=== PATIENT | male | born 1945 | race Caucasian/White ===

== ENCOUNTER 2024-05-19 19:01 | Emergency (ER) | payer MEDICARE ==
[~2024-05-19 19:01] MED LIST: Iopamidol 370 76% 100 ML VIAL ONE
[2024-05-19] MEDS ORDERED: Morphine 4 MG/ML VIAL ONE (21:39)
[2024-05-19 22:11] LABS: #Basophils 0.06 10x3/uL (0.0-0.2); #Eosinophils 0.87 10x3/uL (0.0-0.5); #Monocytes 0.61 10x3/uL (0.0-1.1); #Neutrophils 4.78 10x3/uL (1.5-8.4); %Basophils 0.8 % (0.0-2.0); %Eosinophils 11.5 % (0.0-6.0); %Lymphocytes 15.8 % (18.0-47.0); %Monocytes 8.1 % (0.0-10.0); %Neutrophils 63.3 % (40.0-75.0); Hemoglobin 14.4 g/dL (13.5-17.5); Mean Corpuscular HGB CONC 32.7 g/dL (32.0-36.0); Mean Corpuscular Hemoglobin 32.6 pg (27.0-33.0); Mean Corpuscular Volume 99.5 fL (81.2-95.1); Platelet Count 266 10x3/uL (150-450); RBC Distribution Width 13.5 % (11.5-14.5); Red Blood Cell (RBC) Count 4.42 10x6/uL (4.32-5.72); White Blood Cell (WBC) Count 7.6 10x3/uL (3.5-10.5)
[2024-05-19 22:27] LABS: PTT 25.2 sec (22.0-33.0); Prothrombin Time 10.8 sec (9.5-12.1)
[2024-05-19 22:30] LABS: ALT (SGPT) 22 U/L (8-55); AST (SGOT) 16 U/L (5-34); Albumin 4.1 g/dL (3.4-4.8); Alkaline Phosphatase 86 U/L (40-110); Anion Gap 14 mmol/L (10-20); BUN (Urea Nitrogen) 22 mg/dL (8.4-25.7); Bilirubin, Total 0.4 mg/dL (0.2-1.2); Calc. Creatinine Clearance 0 mL/min (70-130); Calcium 9.6 mg/dL (7.8-10.44); Carbon Dioxide 27 mmol/L (23-31); Chloride 107 mmol/L (98-107); Estimated GFR 74; Globulin 3.1 g/dL (2.4-3.5); Glucose 112 mg/dL (83-110); Potassium 3.7 mmol/L (3.5-5.1); Protein, Total 7.2 g/dL (5.8-8.1); Sodium 144 mmol/L (136-145)
[2024-05-20] MEDS ORDERED: Morphine 4 MG/ML VIAL ONE (00:19)
[2024-05-20] MEDS ORDERED: HYDROmorphone 0.5 MG/0.5 ML SYRINGE ONE (01:59)
[2024-05-20] MEDS ORDERED: Lorazepam 2 MG/ML VIAL ONE (03:10)
[2024-05-20] MEDS ORDERED: Bupivacaine/Epinephrine 0.25% 30 ML VIAL ONE (04:17)
[2024-05-20] MEDS ORDERED: ceFOXitin 1 GM VIAL ONE (04:28)
[2024-05-20 04:51] LABS: Bilirubin Neg (Negative); Blood, Urine 25 (Negative); Clarity Clear (Clear); Glucose, Urine (Dipstick) Normal (Negative); Ketone, Urine Negative (Negative); Leukocyte 25 (Negative); Nitrite Positive (Negative); Protein, Urine (Dipstick) Negative (Neg-Trace); Specific Gravity, Urine 1.015 (1.005-1.030); Urobilinogen Normal mg/dL (Less than 2)
[2024-05-20 05:04] LABS: CAUTI Indications for Culture Alt mental st,lethar; RBC/HPF 0-3 HPF (0-3)
[2024-05-20 05:05] LABS: Bacteria/HPF 3+ HPF (None Seen)
[2024-05-20 05:09] LABS: Squamous Epithelial None Seen HPF (0-3); Transitional Epithelial 0-3 HPF (None Seen)
[2024-05-20 05:10] LABS: Urine Culture Reflex No No
[2024-05-20] MEDS ORDERED: cefTRIAXone (ROCEPHIN) 2 GM VIAL ONE (06:10)
[2024-05-20 07:13] LABS: #Basophils 0.06 10x3/uL (0.0-0.2); #Eosinophils 0.64 10x3/uL (0.0-0.5); #Monocytes 0.75 10x3/uL (0.0-1.1); %Basophils 0.6 % (0.0-2.0); %Eosinophils 6.3 % (0.0-6.0); %Lymphocytes 8.8 % (18.0-47.0); %Monocytes 7.4 % (0.0-10.0); %Neutrophils 76.5 % (40.0-75.0); Hematocrit 37.4 % (38.8-50.0); Hemoglobin 12.6 g/dL (13.5-17.5); Mean Corpuscular HGB CONC 33.7 g/dL (32.0-36.0); Mean Corpuscular Hemoglobin 33.6 pg (27.0-33.0); Mean Corpuscular Volume 99.7 fL (81.2-95.1); Mean Platelet Volume 9.9 fL (7.4-10.4); Platelet Count 228 10x3/uL (150-450); RBC Distribution Width 13.6 % (11.5-14.5); Red Blood Cell (RBC) Count 3.75 10x6/uL (4.32-5.72); White Blood Cell (WBC) Count 10.1 10x3/uL (3.5-10.5)
[2024-05-20 08:08] LABS: ALT (SGPT) 23 U/L (8-55); AST (SGOT) 19 U/L (5-34); Albumin 3.4 g/dL (3.4-4.8); Alkaline Phosphatase 79 U/L (40-110); Anion Gap 12 mmol/L (10-20); BUN (Urea Nitrogen) 17 mg/dL (8.4-25.7); Bilirubin, Total 0.3 mg/dL (0.2-1.2); Calc. Creatinine Clearance 0 mL/min (70-130); Calcium 8.1 mg/dL (7.8-10.44); Carbon Dioxide 24 mmol/L (23-31); Chloride 112 mmol/L (98-107); Estimated GFR 89; Globulin 2.3 g/dL (2.4-3.5); Glucose 107 mg/dL (83-110); Potassium 3.5 mmol/L (3.5-5.1); Protein, Total 5.7 g/dL (5.8-8.1); Sodium 144 mmol/L (136-145)
== END 2024-05-20 11:43 | disposition home or self-care (01) ==
LOC: CSHERS 19:01 → UNDOADMIN 05-20 02:13 → CSHERHOLD 05-20 02:13 → UNDODISIN 05-20 11:44
DX: K40.30 Unilateral inguinal hernia, with obstruction, without gangrene, not specified as recurrent (principal); N39.0 Urinary tract infection, site not specified; I10 Essential (primary) hypertension; F32.A Depression, unspecified; E78.00 Pure hypercholesterolemia, unspecified; Z90.49 Acquired absence of other specified parts of digestive tract
CPT/HCPCS: 51702; 74177; 76870 ×2; 80053 ×2; 81001; 83605 ×2; 85025 ×2; 85610; 85730; 86850; 86900; 86901; 93976 ×2; 94760; 96361; 96374; 96375; 96376; 99284; J0696; J2060; J2270 ×2; Q9967; 36415; J0694